=== PATIENT | male | born 1975 | race Two or more races ===

== ENCOUNTER 2023-03-13 09:15 | Inpatient (IN) | payer OTHER ==
[~2023-03-13] VITALS: Ht 193 cm; Wt 103.9 kg
[2023-03-13] MEDS ORDERED: VALSARTAN160 MG PO (11:10)
[2023-03-13] MEDS ORDERED: CRESTOR5 MG PO (11:10)
[2023-03-13] MEDS ORDERED: GLUMETZA500 MG PO (11:11)
[2023-03-13] MEDS ORDERED: AZOR 10-20 MG1 EACH PO (11:11)
[2023-03-13] MEDS ORDERED: TAMS0.4C PO (11:11)
[2023-03-13] MEDS ORDERED: MULTI VITAMIN1 EACH PO (11:12)
[2023-03-13] MEDS ORDERED: FINASTERIDE5 MG PO (11:12)
[2023-03-19] MEDS ORDERED: GABAPENTIN100 M2 PO (11:34)
[2023-03-19] MEDS ORDERED: COLACE100 MG PO (11:34)
[2023-03-19] MEDS ORDERED: MEDROLPACK PO (11:34)
[2023-03-19] MEDS ORDERED: PERCOCET 5-3251 EACH PO (11:34)
[2023-03-19] MEDS ORDERED: AMOX-CLAV 875-1 EACH PO (11:34)
[2023-03-19] MEDS ORDERED: NEURONTIN800 MG PO (11:35)
[2023-03-20 11:35] LABS: HEMATOCRIT 40.7 % (39.0-48.0); HEMOGLOBIN 13.9 g/dL (13-16.00); MEAN CELL VOLUME 82.2 fL (80.0-100.00); MEAN CORPUSCULAR HGB CONC 34.1 g/dl (32.0-36.0); PLATELET COUNT 320 K/uL (150-450); RED BLOOD COUNT 4.95 M/uL (4.00-6.00)
[2023-03-20 12:02] LABS: CREATININE SERUM 0.77 mg/dL (0.70-1.30); GFR 106.94; POTASSIUM 4.09 mEq/L (3.5-5.1)
== END 2023-03-21 12:33 | disposition home or self-care (01) | DRG 455 ==
LOC: O/R 03-19 07:52 → SURG 03-19 07:52
PROVIDERS: ADMIT Orthopaedic Surgery Orthopaedic Surgery of the Spine; ATTEND Orthopaedic Surgery Orthopaedic Surgery of the Spine
PROC: 0SG0071 Fusion of Lumbar Vertebral Joint with Autologous Tissue Substitute, Posterior Approach, Posterior Column, Open Approach (ICD-10-PCS; 2023-03-19)
PROC: 0ST20ZZ Resection of Lumbar Vertebral Disc, Open Approach (ICD-10-PCS; 2023-03-19)
PROC: 0ST40ZZ Resection of Lumbosacral Disc, Open Approach (ICD-10-PCS; 2023-03-19)
PROC: XRGD0R7 Fusion of Lumbosacral Joint using Custom-Made Anatomically Designed Interbody Fusion Device, Open Approach, New Technology Group 7 (ICD-10-PCS; 2023-03-19)
PROC: 0SG3071 Fusion of Lumbosacral Joint with Autologous Tissue Substitute, Posterior Approach, Posterior Column, Open Approach (ICD-10-PCS; 2023-03-19)
PROC: [UNRECOGNIZED PROCEDURE] (2023-03-19)
PROC: 07DR0ZZ Extraction of Iliac Bone Marrow, Open Approach (ICD-10-PCS; 2023-03-19)
PROC: 4A1104G Monitoring of Peripheral Nervous Electrical Activity, Intraoperative, Open Approach (ICD-10-PCS; 2023-03-19)
PROC: XRGB0R7 Fusion of Lumbar Vertebral Joint using Custom-Made Anatomically Designed Interbody Fusion Device, Open Approach, New Technology Group 7 (ICD-10-PCS; principal; 2023-03-19 21:15)
DX: M51.36 Other intervertebral disc degeneration, lumbar region (principal); M51.37 Other intervertebral disc degeneration, lumbosacral region; M54.16 Radiculopathy, lumbar region; M54.17 Radiculopathy, lumbosacral region